=== PATIENT | male | born 1985 | race Two or more races ===

== ENCOUNTER 2018-10-01 12:17 | Emergency (ER) | payer OTHER ==
[2018-10-01] MEDS ORDERED: SODIUM CHLORIDE 1,000 ML IV STA (12:23)
--- NOTE | 2018-10-01 12:23 | PDOC ---
Rapid Medical Evaluation Time Seen by Provider: 10/01/18 12:22 Medical Evaluation: Allergies Allergy/AdvReac Type Severity Reaction Status Date / Time No Known Allergies Allergy Verified 10/01/18 12:22 10/01/18 12:22 I have performed a brief in-person evaluation of this patient. The patient presents with a chief complaint of: polyuria, polydipsia with PMH DM2 Pertinent physical exam findings: respirations WNL. I have ordered the following: labs, urine The patient will proceed to the ED for further evaluation. Discharge Disposition - Diagnosis Polyuria - Referrals - Patient Instructions - Post Discharge Activity
[2018-10-01 12:26] VITALS: BMI 25.9
--- NOTE | 2018-10-01 13:37 | PDOC ---
History of Present Illness - General Chief Complaint: Blood Sugar Problem Stated Complaint: HIGH BLOOD SUGAR Time Seen by Provider: 10/01/18 12:22 History Source: Patient Exam Limitations: No Limitations - History of Present Illness Initial Comments: 10/01/18 13:23 33YOM with h/o DM who p/w BLE numbness, excessive thirst, and excessive urination for the past 1-2 months in the setting of nonadherence to his diabetic medications. Also states he has had erectile dysfunction worsening chronically. States he is supposed to take metformin and insulin, has not taken insulin in >1 year, took metformin 3-4 days ago but prior to that not for 2 weeks. He has not seen any of his doctors since last year. Denies h/o DKA or any hospital admission for his DM. Denies loss of consciousness, palpitations, chest pain, abdominal pain, f/c/n/v/d/c, headache, dizziness/lightheadedness, or other symptoms. He works as a clamp truck driver and has been having difficulty feeling his feet on the gas petal which is why he came in today. Past History - Past Medical History Allergies/Adverse Reactions: Allergies Allergy/AdvReac Type Severity Reaction Status Date / Time No Known Allergies Allergy Verified 10/01/18 12:22 Home Medications: Ambulatory Orders Metformin HCl [Glucophage] 1,000 mg PO BID #20 tablet 10/01/18 Cephalexin [Keflex] 500 mg PO BID #14 capsule 10/03/18 COPD: No Diabetes: Yes Hypercholesterolemia: Yes - Immunization History Immunization Up to Date: No - Suicide/Smoking/Psychosocial Hx Smoking History: Current every day smoker Information on smoking cessation initiated: No Hx Alcohol Use: No Drug/Substance Use Hx: No Review of Systems - Review of Systems Able to Perform ROS?: Yes Comments:: 10/01/18 13:24 GEN: no fever, chills, malaise, generalized weakness, or weight change HEENT: no ear pain, sore throat, vision change, or eye pain CV: no chest pain, palpitations, lightheadedness, syncope, or edema RESP: no cough, wheezing, or SOB GI: no abdominal pain, nausea, vomiting, diarrhea, constipation, or white/black/ bloody stool : no dysuria, hematuria, incontinence, retention, bleeding, or discharge ENDO: polyuria, polydipsia MSK: no neck/back pain, muscle weakness/pain, or joint swelling/pain NEURO: leg numbness, no headache, seizure, vertigo, tingling, or focal weakness PSYCH: no substance use, no behavior change SKIN: no jaundice, no rash ROS otherwise negative except as noted in HPI *Physical Exam - Vital Signs Last Vital Signs Temp Pulse Resp BP Pulse Ox 98.1 F 112 H 18 117/73 100 10/01/18 12:23 10/01/18 12:23 10/01/18 12:23 10/01/18 12:23 10/01/18 12:23 - Physical Exam Comments: 10/01/18 16:02 GENERAL: well-appearing, A/Ox4, no distress, answers questions appropriately, mother at bedside HEENT: PERRLA, EOMI, moist mucous membranes NECK/BACK: no midline ttp, no spinal stepoff or deformity, no hematoma, full ROM , neck supple CARDIOVASCULAR: regular rate/rhythm, normal S1S2, no MGR, strong peripheral pulses, capillary refill <2 seconds, extremities wwp, no edema LUNGS/RESPIRATORY: no respiratory distress, CTAB GI/ABDOMEN: symmetric [id number], normoactive BS, soft, no ttp, no midline pulsatile masses : no CVA tenderness EXTREMITIES: no muscle atrophy, no acute deformity SKIN: warm and dry, no pallor, no jaundice, no rash, no bruising, no skin breakdown, no cuts, no lesions NEUROLOGICAL: GCS 15, CN II-XII grossly intact, 5/5 strength proximally and distally, no facial droop, subjective mildly decreased sensation distal BLE ED Treatment Course - LABORATORY CBC & Chemistry Diagram: 10/01/18 12:30 10/01/18 12:30 - ADDITIONAL ORDERS Additional order review: Laboratory Results 10/01/18 13:14 POC Glucometer 493 10/01/18 13:14 POC Glucometer 493 Medical Decision Making - Medical Decision Making 10/01/18 15:59 Pt with DM p/w hyperglycemia without AMS, polydipsia, abdominal pain, or other symptoms. Initial Vital Signs Temp Pulse Resp BP Pulse Ox 98.1 F 112 H 18 117/73 100 10/01/18 12:23 10/01/18 12:23 10/01/18 12:23 10/01/18 12:23 07/30/19 12:23 Exam: As noted in Physical Exam section. DDX IBNLT: simple hyperglycemia (e.g. non-adherence, stress hyperglycemia, etc) , HHS, DKA, alcoholic ketosis, starvation ketosis, drug-induced acidosis, salicylate toxicity, uremic acidosis, possible provoking factors non-adherence, infection/inflammation/sepsis (i.e. UTI/pyelonephritis, PNA, bronchitis, skin infection, pancreatitis, etc), EtOH or drug use, ACS, CVA/TIA, renal failure, etc. W/U ordered: Labs as noted below, Initial TX ordered: IVF, insulin EKG: Reviewed; results as noted in ECG Review section. Laboratory Tests 10/01/18 10/01/18 10/01/18 12:30 12:30 12:30 WBC 11.7 H RBC 4.69 Hgb 14.0 Hct 41.9 MCV 89.3 MCH 29.9 MCHC 33.5 RDW 13.1 Plt Count 311 MPV 8.0 Absolute Neuts (auto) 8.9 H Neutrophils % 75.6 Lymphocytes % 15.7 Monocytes % 6.7 Eosinophils % 1.1 Basophils % 0.9 Nucleated RBC % 0 VBG pH POC VBG pCO2 POC VBG pO2 VBG HCO3 VBG O2 Sat (Annabel) VBG Base Excess Sodium 130 L Potassium 4.8 Chloride 96 L Carbon Dioxide 29 Anion Gap 6 L BUN 16.2 Creatinine 1.2 Est GFR (CKD-EPI)AfAm 90.26 Est GFR (CKD-EPI)NonAf 77.87 POC Glucometer Random Glucose 529 H* Calcium 9.6 Total Bilirubin 0.4 AST 3 L ALT 16 Alkaline Phosphatase 111 Total Protein 6.7 Albumin 3.3 L Vitamin B12 1372 H TSH 1.09 Urine Color Urine Appearance Urine pH Ur Specific [place] Urine Protein Urine Glucose (UA) Urine Ketones Urine Blood Urine Nitrite Urine Bilirubin Urine Urobilinogen Ur Leukocyte Esterase Acetone, Qual Negative 10/01/18 10/01/18 10/01/18 12:30 13:14 13:30 WBC RBC Hgb Hct MCV MCH MCHC RDW Plt Count MPV Absolute Neuts (auto) Neutrophils % Lymphocytes % Monocytes % Eosinophils % Basophils % Nucleated RBC % VBG pH 7.39 POC VBG pCO2 45.7 POC VBG pO2 48.4 H VBG HCO3 26.9 VBG O2 Sat (Annabel) 83.8 H VBG Base Excess 1.9 Sodium Potassium Chloride Carbon Dioxide Anion Gap BUN Creatinine Est GFR (CKD-EPI)AfAm Est GFR (CKD-EPI)NonAf POC Glucometer 493 Random Glucose Calcium Total Bilirubin AST ALT Alkaline Phosphatase Total Protein Albumin Vitamin B12 TSH Urine Color Yellow Urine Appearance Clear Urine pH 6.0 Ur Specific [place] 1.039 H Urine Protein Negative Urine Glucose (UA) 3+ H Urine Ketones 1+ H Urine Blood Negative Urine Nitrite Negative Urine Bilirubin Negative Urine Urobilinogen 0.2 Ur Leukocyte Esterase Negative Acetone, Qual Reassessment: Patient states he feels well, comfortable going home. Vital Signs Temperature 99 F 10/01/18 16:12 Pulse Rate 98 H 10/01/18 16:12 Respiratory Rate 20 10/01/18 16:12 Blood Pressure 111/67 10/01/18 16:12 O2 Sat by Pulse Oximetry (%) 98 10/01/18 16:12 This patient has gotten significant relief of symptoms while in the ED. On last reassessment, vitals are wnl, pain is reasonably controlled, and exam is benign. Workup is not concerning for emergency-level pathology at this time. This patient is appropriate for discharge with close outpatient follow up. They are comfortable with this plan and will follow up with their primary care provider in 1-3 days. Specific return precautions are discussed and they will come back to the ER if necessary. *DC/Admit/Observation/Transfer Diagnosis at time of Disposition: Hyperglycemia, unspecified - Discharge Dispostion Disposition: HOME Condition at time of disposition: Stable Decision to Admit order: No - Prescriptions Prescriptions: Cephalexin [Keflex] 500 mg PO BID #14 capsule Metformin HCl [Glucophage] 1,000 mg PO BID #20 tablet - Referrals Referrals: [facility] [place] [Provider Group] - Patient Instructions Printed Discharge Instructions: Type 1 Diabetes Additional Instructions: It is extremely important that you control this from now on. 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 Long-term high blood sugar can lead to emergency complications and . Take your metformin that we are sending to your pharmacy, exactly as prescribed. Follow up with the [facility] this week as scheduled 3:30pm this (you will receive a confirmation call). If you have any new or worsening symptoms, especially inability to control your blood sugars, loss of consciousness, excessive thirst or urination, abdominal pain, or other symptoms, please come back to the ER at any time (24 hours a day) . If you are having severe or life threatening symptoms, or symptoms that make it unsafe to drive or have someone drive you, please call 911. - Post Discharge Activity
[2018-10-01 13:40] LABS: VENOUS PC02 45.7 mmHg (41-51); VENOUS PH 7.39 (7.31-7.41); VENOUS PO2 48.4 mmHg (30-40)
[2018-10-01 13:58] LABS: BASO % 0.9 % (0-2.0); EOS % 1.1 % (0-4.5); HEMATOCRIT 41.9 % (35.4-49); LYMPH % 15.7 % (8-40); MCH 29.9 pg (25.7-33.7); MCHC 33.5 g/dl (32.0-35.9); MEAN CELL VOLUME 89.3 fl (80-96); MONO % 6.7 % (3.8-10.2); NEUT % 75.6 % (42.8-82.8); PLATELET COUNT 311 K/MM3 (134-434); RBC 4.69 M/mm3 (4.00-5.60); RDW 13.1 % (11.9-15.9); WHITE BLOOD COUNT 11.7 K/mm3 (4.0-10.0)
[2018-10-01 13:59] LABS: URINE APPEARANCE CLEAR; URINE BILIRUBIN NEGATIVE (NEGATIVE); URINE COLOR YELLOW; URINE GLUCOSE (UA) 3+ (NEGATIVE); URINE KETONE 1+ (NEGATIVE); URINE LEUK ESTERASE NEGATIVE (NEGATIVE); URINE NITRITE NEGATIVE (NEGATIVE); URINE PROTEIN NEGATIVE (NEGATIVE); URINE UROBILINOGEN 0.2 mg/dL (0.2-1.0)
[2018-10-01 14:33] LABS: ALBUMIN 3.3 g/dl (3.4-5.0); BILIRUBIN,TOTAL 0.4 mg/dL (0.2-1); BLOOD UREA NITROGEN 16.2 mg/dL (7-18); CALCIUM 9.6 mg/dL (8.5-10.1); CREATININE 1.2 mg/dL (0.55-1.3); POTASSIUM 4.8 mmol/L (3.5-5.1); TOT PROT 6.7 g/dl (6.4-8.2)
[2018-10-01] MEDS ORDERED: INSULIN REGULAR HUMAN 100 UNITS/ML *VIAL IVPUSH ONE (14:39)
[2018-10-01] MEDS ORDERED: INSULIN REGULAR HUMAN 100 UNITS/ML *VIAL ONE (14:45)
[2018-10-01 16:14] VITALS: BP 111/67; PULSE 98; TEMP 99
--- NOTE | 2018-10-01 16:43 | PDOC ---
Documentation entered by Jonah Perales SCRIBE, acting as scribe for William Will MD. William Will MD: This documentation has been prepared by the Angella hart Renju, SCRIBE, under my direction and personally reviewed by me in its entirety. I confirm that the documentation accurately reflects all work, treatment, procedures, and medical decision making performed by me. Attending Attestation - Resident Resident Name: FredManisha - ED Attending Attestation I have performed the following: I have examined & evaluated the patient, The case was reviewed & discussed with the resident, I agree w/resident's findings & plan, Exceptions are as noted - HPI HPI: 10/01/18 16:26 The patient is a 33 year old male with a past medical history of diabetes mellitus who presents to the emergency department for evaluation of polyuria, polydipsia, and paresthesia in lower extremities. Patient is employed as a business unit manager and states he had difficulty feeling his feet on the gas pedal while driving which is why he came in to the ED for evaluation. Patient is non compliant with diabetes medication, states he has not taken insulin in over 1 year. Denies chest pain, abdominal pain, shortness of breath, loss of consciousness, palpitations, headache, dizziness, fevers, chills, nausea, vomiting, diarrhea, and constipation. - Physicial Exam PE: 10/01/18 16:26 ROS: A complete review of 10 out of 10 review of systems is taken and is negative apart from what is previously mentioned below and in the HPI. Vitals: Triage Vital signs reviewed General Appearance: no acute distress, well nourished well developed, Head: Atraumatic, Eyes: Pupils equal reactive round, extraocular movement intact Neck: Supple; Chest Wall: Nontender Cardiac: Regular rate and rhythm, no murmurs, no rubs, no gallops, Lungs: Clear to auscultation bilaterally, good air movement bilaterally, Abdomen: Soft, non distended, normal bowel sounds, non tender to palpation Extremities: Full range of motion to all extremities, no cyanosis, clubbing, or edema Skin: Warm and dry, no rashes or lesions, no rash, no petechiae Neuro: Strength intact to all extremities, Sensation intact to all extremities, gait normal Psych: normal mood, normal affect - Medical Decision Making 10/01/18 18:28 Noncompliant diabetic has been off his metformin and insulin for 2 years presents to the ED with signs and symptomatology consistent with uncontrolled hyperglycemia No evidence of DKA on laboratory analysis status post IV fluids and insulin patient feels better We've arranged for the patient follow up in our clinic in 2 days. We will restart the patient on metformin after discussing with the provider at the clinic he will determine patient's insulin needs on Findings, need for follow-up and strict return instructions discussed at length with patient.
--- NOTE | 2018-10-01 17:04 | EKG ---
Test Reason : Blood Pressure : / mmHG Vent. Rate : 095 BPM Atrial Rate : 095 BPM P-R Int : 152 ms QRS Dur : 080 ms QT Int : 318 ms P-R-T Axes : 063 052 048 degrees QTc Int : 399 ms NORMAL SINUS RHYTHM NORMAL ECG NO PREVIOUS ECGS AVAILABLE Confirmed by MD Jaleel, Дмитрий ([id number]) on 10/01/2018 5:04:06 PM Referred By: Confirmed By:Дмитрий Marmolejo MD
== END 2018-10-01 17:05 | disposition home or self-care (01) ==
LOC: JER 12:17
PROC: 3E0337Z Introduction of Electrolytic and Water Balance Substance into Peripheral Vein, Percutaneous Approach (ICD-10-PCS; principal; 2018-10-01)
PROC: 3E033VG Introduction of Insulin into Peripheral Vein, Percutaneous Approach (ICD-10-PCS; 2018-10-01)
DX: E10.65 Type 1 diabetes mellitus with hyperglycemia (principal); Z79.4 Long term (current) use of insulin; Z91.14 Patient's other noncompliance with medication regimen
CPT/HCPCS: 36415; 80053; 81003; 82009; 82607; 82803; 82962; 84443; 85025; 87077; 87086; 93005; 93010; 99283-25; J7030

== ENCOUNTER 2019-05-09 12:07 | Emergency (ER) | payer SELFPAY ==
[2019-05-09 12:20] VITALS: BP 120/78; PULSE 90; TEMP 98.3; BMI 25.8
[2019-05-09] MEDS ORDERED: FLUORESCEIN NA 1 EA STRIP ONE (13:38)
--- NOTE | 2019-05-09 13:58 | PDOC ---
History of Present Illness - General Chief Complaint: Eye Problem Stated Complaint: RT. EYE PAIN Time Seen by Provider: 05/09/19 13:04 History Source: Patient Exam Limitations: No Limitations Past History - Past Medical History Allergies/Adverse Reactions: Allergies Allergy/AdvReac Type Severity Reaction Status Date / Time No Known Allergies Allergy Verified 05/09/19 12:19 Home Medications: Ambulatory Orders Metformin HCl [Glucophage] 1,000 mg PO BID #20 tablet 10/01/18 Cephalexin [Keflex] 500 mg PO BID #14 capsule 10/03/18 COPD: No Diabetes: Yes Hypercholesterolemia: Yes - Immunization History Immunization Up to Date: No - Psycho Social/Smoking Cessation Hx Smoking History: Never smoked Hx Alcohol Use: No Drug/Substance Use Hx: No *Physical Exam - Vital Signs Last Vital Signs Temp Pulse Resp BP Pulse Ox 98.3 F 90 16 120/78 100 05/09/19 12:17 05/09/19 12:17 05/09/19 12:17 05/09/19 12:17 05/09/19 12:17 - Physical Exam General Appearance: No: Apparent Distress HEENT: positive: Other (R eye injected, no pain on movement, no FB noted in eye, no dye uptake, no corneal abrasion, vision 20/20 L, 20/20 R, 20/20 both (with glasses)) Neurologic: positive: Alert Medical Decision Making - Medical Decision Making 33 y/o M with hx of T2DM presents with R eye pain x 3 days along with tearing and photophobia at times. Wears eyeglasses. Denies changes in vision, headache, n/v, fever, URI sxs, other complaints. No evidence of corneal abrasion on exam Not high suspicion for acute glaucoma Unable to properly check for cell flare with current slit-lamp machine Will return to eye doctor for further evaluation 05/09/19 13:53 Discharge - Discharge Information Problems reviewed: Yes Clinical Impression/Diagnosis: Pain, eye, right Condition: Stable Disposition: HOME - Admission No - Additional Discharge Information Prescription Drug Monitoring Program (I-STOP) results: I-STOP not reviewed - Follow up/Referral Referrals: Shannan Arroyo MD [Staff Physician] - 2 Days - Patient Discharge Instructions Patient Printed Discharge Instructions: DI for Eye Pain Additional Instructions: Thank you for choosing [facility]. It was a pleasure taking care of you. You are referred to the eye doctor for further evaluation of your eye Please call to make an appointment Return to the Emergency Department if your symptoms worsen or persist, you have changes in vision, severe eye pain, vomiting, severe headache or other concerning symptoms. - Post Discharge Activity
== END 2019-05-09 14:03 | disposition home or self-care (01) ==
LOC: JERFT 12:07
DX: H57.11 Ocular pain, right eye (principal); E11.9 Type 2 diabetes mellitus without complications
CPT/HCPCS: 99282-25

== ENCOUNTER 2019-05-15 15:24 | Emergency (ER) | payer OTHER ==
[2019-05-15 15:38] VITALS: TEMP 98.3; BMI 25.2
--- NOTE | 2019-05-15 17:24 | PDOC ---
History of Present Illness - General Chief Complaint: Blood Sugar Problem Stated Complaint: SENT BY DOC Time Seen by Provider: 05/15/19 17:08 Past History - Past Medical History Allergies/Adverse Reactions: Allergies Allergy/AdvReac Type Severity Reaction Status Date / Time No Known Allergies Allergy Verified 05/15/19 15:33 Home Medications: Ambulatory Orders Metformin HCl [Glucophage] 1,000 mg PO BID #20 tablet 10/01/18 Insulin Detemir [Levemir Flextouch] 18 unit SQ HS #1 insuln.pen 05/15/19 Insulin Lispro [Humalog Kwikpen U-100] 6 unit SQ ACHS #1 insuln.pen 05/15/19 COPD: No Diabetes: Yes (on insulin, non compliant) Hypercholesterolemia: Yes - Immunization History Immunization Up to Date: No - Psycho Social/Smoking Cessation Hx Smoking History: Current every day smoker Number of Cigarettes Smoked Daily: 10 Information on smoking cessation initiated: Yes Hx Alcohol Use: No Drug/Substance Use Hx: No *Physical Exam - Vital Signs Last Vital Signs Temp Pulse Resp BP Pulse Ox 98.3 F 106 H 18 116/73 99 05/15/19 15:33 05/15/19 15:33 05/15/19 15:33 05/15/19 15:33 05/15/19 15:33 ED Treatment Course - LABORATORY CBC & Chemistry Diagram: 05/15/19 17:45 05/15/19 17:45 Discharge - Discharge Information Problems reviewed: Yes Clinical Impression/Diagnosis: Hyperglycemia, unspecified, Uveitis Disposition: HOME - Admission No - Additional Discharge Information Prescriptions: Insulin Lispro [Humalog Kwikpen U-100] 6 unit SQ ACHS #1 insuln.pen Insulin Detemir [Levemir Flextouch] 18 unit SQ HS #1 insuln.pen - Follow up/Referral - Patient Discharge Instructions Patient Printed Discharge Instructions: DI for Hyperglycemia -- Adult Additional Instructions: You were evaluated for your elevated blood sugar and uveitis today. Your insulin was refilled. Please pick it up tomorrow and start taking it as directed. Your hemoglobin A1c was 13 meaning your blood sugar is poorly controlled. Please take the eyedrops as prescribed by your caddie as directed. Failure to use the eyedrops and sisal picker your insulin can result in worsening of your condition that may be nonreversible. Please follow-up with our primary care doctors tomorrow. Their phone number has been provided to you. Return to the ER for fever, worsening pain, vomiting, lightheadedness, weakness or if you have any changes in your symptoms. - Post Discharge Activity Work/Back to School Note: Back to Work
[2019-05-15 18:00] LABS: VENOUS PC02 52.2 mmHg (38-52); VENOUS PH 7.37 (7.31-7.41)
[2019-05-15 18:02] LABS: VENOUS PO2 < 49 mmHg (28-48)
[2019-05-15 18:12] LABS: BASO % 0.8 % (0-2.0); EOS % 3.4 % (0-4.5); HEMATOCRIT 43.4 % (35.4-49); HEMOGLOBIN 14.6 GM/dL (11.7-16.9); LYMPH % 24.2 % (8-40); MCHC 33.6 g/dl (32.0-35.9); MEAN CELL VOLUME 89.3 fl (80-96); MEAN PLT VOLUME 7.5 fl (7.5-11.1); MONO % 5.2 % (3.8-10.2); NEUT % 66.4 % (42.8-82.8); PLATELET COUNT 379 K/MM3 (134-434); RBC 4.86 M/mm3 (4.00-5.60); RDW 12.8 % (11.9-15.9); WHITE BLOOD COUNT 10.3 K/mm3 (4.0-10.0)
[2019-05-15 18:26] VITALS: BP 112/79; PULSE 99
[2019-05-15 18:45] LABS: ALBUMIN 3.4 g/dl (3.4-5.0); BILIRUBIN,TOTAL 0.2 mg/dL (0.2-1); BLOOD UREA NITROGEN 8.1 mg/dL (7-18); CALCIUM 9.6 mg/dL (8.5-10.1); CREATININE 0.9 mg/dL (0.55-1.3); POTASSIUM 4.2 mmol/L (3.5-5.1); TOT PROT 6.8 g/dl (6.4-8.2)
[2019-05-15] MEDS ORDERED: INSULIN REGULAR HUMAN 100 UNITS/ML *VIAL IVPUSH ONE (19:02)
[2019-05-15] MEDS ORDERED: SODIUM CHLORIDE 1,000 ML IV STA ×2 (19:02→20:47)
[2019-05-15 19:12] LABS: ERYTHROCYTE SEDIMENTATION RATE 25 mm/hr (0-10)
[2019-05-15] MEDS ORDERED: INSULIN REGULAR HUMAN 100 UNITS/ML *VIAL ONE (19:37)
[2019-05-15] MEDS ORDERED: INSULIN (LEVEMIR) 100 UNITS/ML UNITS SQ ONE ×2 (21:52→22:38)
== END 2019-05-15 23:38 | disposition home or self-care (01) ==
LOC: JER 15:24
DX: E10.65 Type 1 diabetes mellitus with hyperglycemia (principal); Z79.4 Long term (current) use of insulin; H20.9 Unspecified iridocyclitis
CPT/HCPCS: 36415; 71046-TC-FY; 80053; 81374; 82803; 82962; 83036; 85025; 85651; 86593; 86618; 99284-25; J7030